=== PATIENT | female | born 1965 | race Caucasian/White ===

== ENCOUNTER 2021-04-07 15:25 | Emergency (ER) | payer BC | END 2021-04-07 16:29 | disposition left against medical advice (07) | LOC: MW.ED 15:25 | DX: Z53.21 Procedure and treatment not carried out due to patient leaving prior to being seen by health care provider (principal) ==

== ENCOUNTER 2023-06-15 11:43 | Day surgery (SDC) | payer BC ==
[~2023-06-15 11:43] MED LIST: Lactated Ringers 1,000 ML IV SCH
[2023-06-15] MEDS ORDERED: Propofol 200 MG/20 ML SDV ONE (12:59)
[2023-06-15] MEDS ORDERED: dexmedeTOMIDine HCl 200 MCG/2 ML SDV ONE (13:00)
[2023-06-15] MEDS ORDERED: Lactated Ringers 1,000 ML IV SCH (14:45)
[2023-06-15 15:13] VITALS: BP 123/76; PULSE 61
== END 2023-06-15 15:00 | disposition home or self-care (01) ==
LOC: EDSEX → MW.SDS 11:43
PROVIDERS: ATTEND Surgery
DX: K21.00 Gastro-esophageal reflux disease with esophagitis, without bleeding (principal); K29.00 Acute gastritis without bleeding; K31.89 Other diseases of stomach and duodenum; R03.0 Elevated blood-pressure reading, without diagnosis of hypertension; F17.290 Nicotine dependence, other tobacco product, uncomplicated; Z98.84 Bariatric surgery status; Z90.49 Acquired absence of other specified parts of digestive tract; Z79.899 Other long term (current) drug therapy
CPT/HCPCS: 43239; J2704; J7120; J3490